=== PATIENT | male | born 2000 | race African-American/Black ===

== ENCOUNTER 2019-09-10 08:22 | Outpatient (CLI) | payer OTHER, SELFPAY ==
--- NOTE | 2019-09-10 | XR_ITS ---
WS: [id number] RIGHT KNEE: 3 VIEW(S) TECHNIQUE: AP, oblique(s) and lateral. HISTORY: INJURIED RT KNEE DURING BASKETBALL GAME MONDAY COMPARISON: None available. No fracture or dislocation. No joint space narrowing or osteophytes. Small suprapatellar joint effusion. No soft tissue abnormality. XR/XR knee RT 3V* [id number] IMPRESSION: Small suprapatellar joint effusion. No fracture.
== END 2019-09-10 08:23 | disposition home or self-care (01) ==
PROVIDERS: Family Provider Family Medicine; PCP Family Medicine; Visit Provider Nurse Practitioner Family
DX: Z76.89 Persons encountering health services in other specified circumstances (principal)

== ENCOUNTER 2019-09-11 12:53 | Outpatient (CLI) | payer OTHER, SELFPAY | END 2019-09-11 12:54 | disposition home or self-care (01) | LOC: SPT 12:54 | PROVIDERS: Family Provider Family Medicine; PCP Family Medicine; Visit Provider Podiatrist Foot & Ankle Surgery | DX: S82.54XD Nondisplaced fracture of medial malleolus of right tibia, subsequent encounter for closed fracture with routine healing (principal); X58.XXXD Exposure to other specified factors, subsequent encounter | CPT/HCPCS: L3030 ==